=== PATIENT | male | born 1975 | race Caucasian/White ===

== ENCOUNTER 2017-07-12 11:47 | Emergency (ER) | payer OTHER ==
[2017-07-12] MEDS: IBUPROFEN 600 MG TABLET. PO (13:06)
== END 2017-07-12 13:33 | disposition home or self-care (01) ==
LOC: ER 11:47
DX: S13.9XXA Sprain of joints and ligaments of unspecified parts of neck, initial encounter (principal); V89.2XXA Person injured in unspecified motor-vehicle accident, traffic, initial encounter; Y93.89 Activity, other specified; Y99.8 Other external cause status; Y92.488 Other paved roadways as the place of occurrence of the external cause
CPT/HCPCS: 72125; 99284-25